=== PATIENT | female | born 1940 | race Native Hawaiian/Other Pacific Islander ===

== ENCOUNTER 2018-08-21 13:38 | Outpatient (CLI) | payer OTHER, MEDICARE | END 2018-08-21 23:40 | disposition home or self-care (01) | LOC: RAD 13:38 | DX: M17.0 Bilateral primary osteoarthritis of knee (principal); M19.041 Primary osteoarthritis, right hand; M19.042 Primary osteoarthritis, left hand ==

== ENCOUNTER 2020-01-26 18:24 | Outpatient (CLI) | payer OTHER, MEDICARE | END 2020-01-26 19:01 | disposition home or self-care (01) | LOC: LAB 18:24 | PROVIDERS: ATTEND Nurse Practitioner Family | DX: R30.0 Dysuria (principal) | CPT/HCPCS: 81000; 87088 ==

== ENCOUNTER 2020-09-01 10:49 | Outpatient (CLI) | payer OTHER, MEDICARE | END 2020-09-01 23:59 | disposition home or self-care (01) | LOC: MRI 10:49 | PROVIDERS: ATTEND Psychiatry & Neurology Neurology | DX: R41.0 Disorientation, unspecified (principal); J84.10 Pulmonary fibrosis, unspecified | CPT/HCPCS: 36415; 82607; 82746; 84443; 85652; 86038; 86480 ==

== ENCOUNTER 2022-10-13 06:48 | Outpatient (CLI) | payer OTHER ==
[2022-10-13 08:44] LABS: PLATELET COUNT 205 K/uL (152-353)
== END 2022-10-13 19:12 | disposition home or self-care (01) ==
LOC: LAB 06:48
PROVIDERS: ATTEND Internal Medicine
DX: E78.49 Other hyperlipidemia (principal); E03.8 Other specified hypothyroidism; D64.89 Other specified anemias; Z79.899 Other long term (current) drug therapy
CPT/HCPCS: 80053; 80061; 83735; 84443; 85027; 87081

== ENCOUNTER 2022-10-24 10:34 | Outpatient (CLI) | payer OTHER | END 2022-10-24 19:15 | disposition home or self-care (01) | LOC: RAD 10:34 | PROVIDERS: ATTEND Internal Medicine | DX: R60.0 Localized edema (principal) ==

== ENCOUNTER 2022-10-27 10:53 | Outpatient (CLI) | payer OTHER | END 2022-10-27 19:01 | disposition home or self-care (01) | LOC: RAD 10:53 | PROVIDERS: ATTEND Internal Medicine | DX: M54.89 Other dorsalgia (principal) ==

== ENCOUNTER 2022-11-09 00:12 | Outpatient (CLI) | payer OTHER | END 2022-11-09 19:23 | disposition home or self-care (01) | LOC: LAB 00:12 | PROVIDERS: ATTEND Internal Medicine | DX: N18.31 Chronic kidney disease, stage 3a (principal); R82.998 Other abnormal findings in urine | CPT/HCPCS: 87077; 87086; 87088; 87186 ==

== ENCOUNTER 2022-11-09 13:54 | Outpatient (CLI) | payer OTHER | END 2022-11-09 19:30 | disposition home or self-care (01) | LOC: RAD 13:54 | PROVIDERS: ATTEND Internal Medicine | DX: R10.819 Abdominal tenderness, unspecified site (principal) ==